=== PATIENT | male | born 1975 | race Native Hawaiian/Other Pacific Islander ===

== ENCOUNTER 2021-10-30 10:28 | Emergency (ER) | payer OTHER ==
[~2021-10-30] VITALS: Ht 182.9 cm; Wt 108.9 kg
[2021-10-30 10:34] VITALS: TEMP 97.1
[2021-10-30 10:53] LABS: PLATELET COUNT 214 K/uL (142-355)
[2021-10-30 11:01] LABS: POTASSIUM 4.1 mmol/L (3.6-5.2)
[2021-10-30 11:08] LABS: PARTIAL THROMBOPLASTIN TIME 25.1 SECONDS (24.5-33.6)
[2021-10-30 12:35] VITALS: BP 125/85
== END 2021-10-30 12:35 | disposition still patient (30) ==
LOC: ED 10:28
PROVIDERS: Hospitalist
DX: R29.810 Facial weakness (principal)
CPT/HCPCS: 36415; 80053; 82550; 83880; 84484; 85027; 85610; 85730; 93005; 99284